=== PATIENT | male | born 1990 | race African-American/Black ===

== ENCOUNTER → 2021-11-07 14:51 | Outpatient (REF) | payer OTHER, SELFPAY | LOC: HO.SL 14:51 | PROVIDERS: PCP Internal Medicine; Visit Provider Internal Medicine | DX: G47.30 Sleep apnea, unspecified (principal) | CPT/HCPCS: 95806 ==

== ENCOUNTER 2022-08-08 05:51 | Emergency (ER) | payer OTHER, SELFPAY ==
--- NOTE | ~2022-08-08 | XR_ITS ---
EXAMINATION: XR WRIST, LEFT CLINICAL INFORMATION: Pain after work injury COMPARISON: None TECHNIQUE: Four views of the left wrist. FINDINGS: No fracture or dislocation. The carpal rows are well aligned. Joint spaces are maintained. Soft tissues are unremarkable. XR/XR wrist LT min 3V IMPRESSION: Normal left wrist.
[2022-08-08 06:31] VITALS: BMI 28.0
--- NOTE | 2022-08-08 07:35 | ED.EXTPRO ---
HPI - Extremity Problem General Chief complaint: Extremity Problem Stated complaint: broken? wrist Time Seen by Provider: 08/08/22 07:21 Source: patient Mode of arrival: ambulatory Limitations: no limitations History of Present Illness HPI Narrative: 32-year-old male who presents emergency department for evaluation of left wrist injury. Patient states that 3 days prior he was using a hammer accidentally struck his left wrist. Patient points to his left distal radial area when asked to localize his pain. He states that he has had a constant, sharp pain in his wrist which is worse if he bends his wrist. He has been wearing a wrist splint and states he has been able to continue to work while wearing the splint. Patient states that he fractured his left wrist sober years ago and the initial x-ray miss the fracture. He states that he was in [place] for 4-6 weeks secondary to the fracture. Complaint: extremity pain Onset (ago): day(s) (3) Pain Consistency: constant Location: left Severity scale (1-10): 2 Quality: sharp Radiation: none Relieving factors: immobilization Exacerbating factors: range of motion Associated symptoms: denies other symptoms Related Data Home Medications Medication Instructions Recorded Confirmed No Known Home Meds 10/22/20 10/22/20 Allergies Allergy/AdvReac Type Severity Reaction Status Date / Time No Known Allergies Allergy Verified 08/08/22 06:31 Review of Systems Review of Systems: Yes all other systems are reviewed and are negative [facility] Past Medical History [facility] Narrative: Social history: He denies tobacco use. He occasionally drinks alcohol. He denies drug use. Medical History Annual physical exam Myasthenia gravis Sleep apnea Family History Family History Mother Leukemia Father No problems noted. Social History Social History Alcohol intake: current Alcohol intake frequency: 0-2 drinks per day Advance Directives: Yes Advance Directives Information Provided: Yes Advance Directives on File: No Physical Exam Vital Signs: Vital Signs: BMI result Body Mass Index 28.0 Const: Other: Very pleasant and cooperative male patient, in no distress, answers all questions appropriately. Extrem: Other: There is no soft tissue swelling or ecchymosis noted over the patient's left wrist her forearm, he does have localized tenderness with palpation of the distal radius with no tenderness over the anatomic snuffbox. Patient has no tenderness with palpation over his elbow or hand. Course Course Course Narrative: 32-year-old male who presents emergency department for evaluation left wrist pain after accidentally hitting his left wrist with a hammer 3 days prior. Patient is wearing a wrist immobilizer and he states that this does relieve this pain. Examination did reveal tenderness palpation over the distal radius with no tenderness palpation over the anatomic snuffbox or over his wrist joints. Extremities neurovascular . X-rays of the patient's left wrist and forearm were obtained and there are no acute fractures noted on my review these x-rays or by the radiologist's interpretation. I did discuss this with the patient. He is advised to continue to wear his wrist splint for 1-2 weeks and he was advised to take Tylenol and ibuprofen for the pain. He was given verbal and printed instructions and discharged home. Discharge Plan Discharge Clinical Impression: Contusion of left wrist Patient Disposition: Home, Self-Care Instructions: Wrist Injury (ED) Additional Instructions: Your tender over the distal radius of your left forearm. The x-rays of your forearm and wrist do not reveal any broken bones on my review of these x-rays, the radiologist also did not see any broken bones which is reassuring Sometimes you can have a crack in the bone that cannot be seen on initial x-ray. If you continue to have pain in this area after 1-2 weeks then you can get a repeat x-ray to see if there is a healing line. The treatment however is often the same which is staying in the splint for 1-2 weeks. Continue to wear your splint for 1-2 weeks. Apply ice for 10 minutes 4 times a day to the area that hurts on your wrist pain Take ibuprofen 200 mg pills, 3 pills every 6 hours as needed for pain. Take Tylenol (acetaminophen) 500 mg pills, 2 pills every 4 to 6 hours as needed for pain. Follow-up with your doctor in 2 days. Please return to the emergency department if your symptoms get worse or if you develop any symptoms that are concerning to you. Prescriptions: No Action No Known Home Meds
== END 2022-08-08 07:48 | disposition home or self-care (01) ==
PROVIDERS: Emergency Provider Emergency Medicine Emergency Medical Services
DX: S60.212A Contusion of left wrist, initial encounter (principal); W22.8XXA Striking against or struck by other objects, initial encounter; Y93.89 Activity, other specified; Y92.019 Unspecified place in single-family (private) house as the place of occurrence of the external cause
CPT/HCPCS: 73110; 99282; 99283

== ENCOUNTER 2023-12-10 13:07 | Outpatient (REF) | payer OTHER, SELFPAY ==
[2023-12-10 16:13] LABS: MANUAL DIFF FLAG NO
[2023-12-10 16:22] LABS: Basophils Percent Auto 0.2 % (0-2); Hematocrit 40.8 % (42.0-52.0); Hemoglobin 13.3 g/dl (14.0-18.0); Imm Gran Abs Auto 0.01 X10*3/uL (0.00-0.03); Imm Gran Pct Auto 0.2 % (0.0-0.4); Lymphocytes Absolute Auto 1.5 X10*3/uL (1.2-4.9); Lymphocytes Percent Auto 36.1 % (20-40); Mean Corpuscular HGB Conc 32.6 g/dl (31.0-36.0); Mean Corpuscular Hemoglobin 27.4 pg (27.0-33.0); Mean Platelet Volume 10.4 fL (9.4-12.4); Monocytes Absolute Auto 0.5 X10*3/uL (0.1-1.2); Neutrophils Absolute Auto 2.1 x10*3/uL (2.0-8.3); Neutrophils Percent Auto 50.5 % (45-73); Platelet Count 201 X10*3/uL (160-400); Red Blood Count 4.86 X10*6/uL (4.60-5.80); Red Cell Distribution Width 13.3 % (11.0-16.0); White Blood Count 4.1 X10*3/uL (4.8-10.8)
[2023-12-10 16:49] LABS: Alanine Aminotransferase 29 U/L (0-40); Albumin Level 4.4 g/dL (3.5-5.0); Alkaline Phosphatase 46 U/L (39-117); Anion Gap 11 (12-20); Aspartate Amino Transferase 60 U/L (5-37); Bilirubin Total 2.3 mg/dL (0.0-1.0); Blood Urea Nitrogen 16 mg/dL (9-16); Calcium 9.4 mg/dL (8.4-10.2); Carbon Dioxide 28 mmol/L (22-29); Chloride 105 mmol/L (96-108); Cholesterol 168 mg/dL (<200); Estimated Glomerular Filt Rate > 60; Glucose Fasting 89 mg/dL (60-99); HDL Cholesterol 60 mg/dL (>40); LDL Cholesterol Calculated 101 mg/dL (<100); Potassium 4.1 mmol/L (3.3-5.1); Sodium 140 mmol/L (135-145); Total Protein 7.5 g/dL (6.5-8.0); Triglycerides 36 mg/dL (<150)
== END 2023-12-10 13:08 | disposition home or self-care (01) ==
LOC: HO.HMGCLDS 13:07
PROVIDERS: PCP Internal Medicine; Visit Provider Internal Medicine
DX: Z00.00 Encounter for general adult medical examination without abnormal findings (principal); Z13.220 Encounter for screening for lipoid disorders
CPT/HCPCS: 36415; 80053; 80061; 85025

== ENCOUNTER 2023-12-17 11:44 | Outpatient (AMB) | payer OTHER, SELFPAY ==
[2023-12-17 11:45] VITALS: BP 126/74; PULSE 71; O2SAT 98; BMI 29.2
--- NOTE | 2023-12-17 11:45 | A.OFFPC_ITS ---
Vital Signs 12/17/23 11:45 Height 6 ft 4 in Weight 240 lb BMI 29.2 BP 126/74 Blood Pressure Location Lt brachial Position Sitting Pulse 71 Pulse Source Pulse Oximeter Pulse Oximetry (%) 98 Oxygen Delivery Method Room Air Intake Visit Reasons: follow up sleep apnea Intake Note: Pt is here today for PE. Pt states that he had blood work done. Allergies No Known Allergies Allergy (Verified 12/17/23 11:49) Medication List - Last Reconciled 12/17/23 by Laverne Morales MD No Known Home Meds Tobacco use date assessed: 12/17/23 Dental Screening Dental Screen Date: 12/17/23 Did you have a dental visit in the last 12 months?: Yes Did you have a dental problem in the last 6 months where you did not have access to dental care?: No Was dental information given to patient?: Patient has dentist HPI HPI Comments History of Present Illness Details Pt presents for PE. [facility] Medical History (Updated 12/17/23 @ 12:37 by Laverne Morales MD) Sleep apnea Annual physical exam Family History Mother Leukemia Father No problems noted. Social History Housing: House Alcohol intake: current Alcohol intake frequency: 0-2 drinks per day Patient Tobacco Use Status: Never used Tobacco e-Cigarette/Vaping Use: Never Used Current occupational status: employed Cognitive needs: No Hearing needs: No Vision needs: No Questionnaire PHQ-9 Over the last 2 weeks, how often have you been bothered by any of the following problems? 1. Little interest or pleasure in doing things: not at all 2. Feeling down, depressed, or hopeless: not at all 3. Trouble falling or staying asleep, or sleeping too much: more than half the days 4. Feeling tired or having little energy: several days 5. Poor appetite or overeating: not at all 6. Feeling bad about yourself - or that you are a failure or have let yourself or your family down: not at all 7. Trouble concentrating on things, such as reading the newspaper or watching television: not at all 8. Moving or speaking so slowly that other people could have noticed. Or the opposite - being so fidgety or restless that you have been moving around a lot more than usual: not at all 9. Thoughts that you would be better off or of hurting yourself in some way: not at all Total score: 3 Depression Screening Interpretation: Negative Depression Screening Done: Yes 93424 - PHQ-9 Billing: Yes Source: Developed by Drs. Liban Tinajero, Kiley Ag, Bradford Ames and colleagues, with an educational abeba from [employer]. Thrive Questionnaire Date Thrive assessed: 12/17/23 I am a: Patient What is your living situation today?: I have a steady place to live Within the past 12 months, did the food you bought not last and you didn't have the money to get more?: I choose not to answer this question Within the past 12 months, did you worry whether your food would run out before you got money to buy more?: I choose not to answer this question Do you have trouble paying for medicines?: I choose not to answer this question Do you have trouble getting transportation to medical appointments?: I choose not to answer this question Do you have trouble paying your heating and electricity bill?: I choose not to answer this question Do you have trouble taking care of your child, family member or friend?: I choose not to answer this question Do you have trouble with day-to-day activities such as bathing, preparing meals, shopping, managing finances, etc.?: I choose not to answer this question Are you currently unemployed and looking for a job?: I choose not to answer this question Are you interested in more education?: I choose not to answer this question THRIVE Score: 0 AUDIT C Alcohol Use Questionnaire (AUDIT-C) 1. How often do you have a drink containing alcohol?: 2-3 times a week 2. How many drinks containing alcohol do you have on a typical day when you are drinking?: 1 or 2 3. How often do you have six or more drinks on one occasion?: Never Total Score: 3 JULIOCESAR-7 AMB Questionnaire JULIOCESAR-7 Date JULIOCESAR - 7 assessed: 12/17/23 Feeling nervous, anxious, or on edge: 0 = Not at all Not being able to stop or control worryin = Not at all Worrying too much about different things: 0 = Not at all Trouble relaxin = Not at all Being so restless that it is hard to sit still: 0 = Not at all Becoming easily annoyed or irritable: 0 = Not at all Feeling afraid as if something awful might happen: 0 = Not at all Total JULIOCESAR-7 score (0-4 normal; 5-9 mild; 10-14 moderate; 15-21 severe): 0 Source: Developed by Drs. Liban Tinajero, Kiley Ag, Bradford Ames and colleagues, with an educational abeba from [employer]. Review of Systems Const All systems reviewed & are unremarkable except as noted in HPI and below Reports no additional complaints Eyes Reports no additional complaints ENT Reports no additional complaints Card Reports no additional complaints Resp Reports no additional complaints GI Reports no additional complaints Reports no additional complaints Musc Reports no additional complaints Physical exam (Primary Care) Vital Signs: Last Vital Signs Pulse 71 12/17/23 11:45 BP 126/74 12/17/23 11:45 Pulse Ox 98 12/17/23 11:45 Oxygen Delivery Method Room Air 12/17/23 11:45 BMI result Body Mass Index 29.2 Tobacco/Smoking Status: Tobacco use Status Tobacco use date assessed 12/17/23 12/17/23 11:53 Patient Tobacco Use Status Never used Tobacco 12/17/23 11:53 e-Cigarette/Vaping Use Never Used 12/17/23 11:53 PHQ-9: PHQ-9 Score PHQ-9: Total score 3 12/17/23 12:45 Depression Screening Interpretation: Negative Thrive Assessment: Date of Thrive Assessment Date Thrive assessed 12/17/23 12/17/23 12:45 Const General: no acute distress HENMT Head: Yes normal to inspection Ears: hearing grossly normal bilaterally General nose exam: Normal external nose present Face and sinus: Yes normal facial exam Mouth: Normal oral and palatal mucosa present Throat: Yes posterior oropharynx normal Eyes General: appearance normal, both eyes and all related structures Neck Neck: Yes no lymphadenopathy and Yes supple Resp Effort & Inspection: normal respiratory effort Auscultation: clear to auscultation bilaterally Cardio Rhythm: regular rhythm Heart sounds: S1 normal heart sound present and S2 normal heart sound present GI Inspection: Yes normal to inspection Palpation (GI): Soft to palpation Percussion: Yes normal to percussion Auscultation: normal bowel sounds Assessment and Plan Assessment & Plan (1) Elevated LFTs: Code(s): R7.89 - Other specified abnormal findings of blood chemistry Plan: Obtain hepatitis screen and liver ultrasound, patient was advised to avoid alcohol [id number] NSAID's (2) Annual physical exam: Code(s): Z00.00 - Encounter for general adult medical examination without abnormal findings Plan: Well-balanced diet regular physical activity discussed with the patient (3) Sleep apnea: Comment: on C pap Code(s): G47.30 - Sleep apnea, unspecified Orders: Orders Hepatitis A,B,C Profile Today - Other specified abnormal findings of blood chemistry, Z00.00 - Encounter for general adult medical examination without abnormal findings HIV Ab/Ag Today . - Other specified abnormal findings of blood chemistry, Z00.00 - Encounter for general adult medical examination without abnormal fin dings Bilirubin Direct Today . - Other specified abnormal findings of blood chemistry Liver Panel Today . - Other specified abnormal findings of blood chemistry, Z00.00 - Encounter for general adult medical examination without abnormal findings US abdomen complete Today . - Other specified abnormal findings of blood chemistry, Z00.00 - Encounter for general adult medical examination without abnormal findings IRON PROFILE Today . - Other specified abnormal findings of blood chemistry, Z00.00 - Encounter for general adult medical examination without abnormal findings Vitamin B12 and Folate Today . - Other specified abnormal findings of blood chemistry, Z00.00 - Encounter for general adult medical examination without abnormal findings Complete Blood Count Auto Diff Today . - Other specified abnormal findings of blood chemistry, Z00.00 - Encounter for general adult medical examination without abnormal findings Hemoglobin Electrophoresis Today Z00.00 - Encounter for general adult medical examination without abnormal findings Ferritin Today . - Other specified abnormal findings of blood chemistry Coding Level of Care Code Est Pt Prev Care 18-39y([id number]) Diagnoses Elevated LFTs . Annual physical exam Z00.00 Sleep apnea G47.30
== END 2023-12-17 12:39 | disposition home or self-care (01) ==
PROVIDERS: PCP Internal Medicine; Visit Provider Internal Medicine
DX: R79.89 Other specified abnormal findings of blood chemistry (principal); Z00.00 Encounter for general adult medical examination without abnormal findings; G47.30 Sleep apnea, unspecified
CPT/HCPCS: 99395

== ENCOUNTER 2023-12-22 10:29 | Outpatient (REF) | payer OTHER, SELFPAY ==
--- NOTE | ~2023-12-22 | US_ITS ---
EXAMINATION: US ABDOMEN COMPLETE CLINICAL INFORMATION: Elevated LFTs.. COMPARISON: None available. TECHNIQUE: Real-time imaging of the abdominal viscera. FINDINGS: PANCREAS: Normal. The pancreatic duct measures 0.2 cm. ABDOMINAL AORTA: The proximal, mid, and distal segments are normal in caliber. INFERIOR VENA CAVA: Visualized portions are normal. LIVER: Normal. The liver is normal in size. The liver contour is normal. Parenchymal echogenicity is normal. No focal hepatic lesion. There is no intrahepatic biliary duct dilatation seen. GALLBLADDER: Normal. The gallbladder is physiologically distended without evidence of stones, sludge, polyps, wall thickening or pericholecystic fluid. COMMON BILE DUCT: Normal in caliber measuring 0.2 cm in diameter. RIGHT KIDNEY: Normal. No hydronephrosis. No renal calculi or focal parenchymal lesions. The kidney measures 12.6 cm in maximum dimension. LEFT KIDNEY: Normal. No hydronephrosis. No renal calculi or focal parenchymal lesions. The kidney measures 11.6 cm in maximum dimension. SPLEEN: Normal. The spleen measures 10.1 cm in maximum dimension. FREE FLUID: None. US/US abdomen complete IMPRESSION: Normal abdominal ultrasound.
[2023-12-22 13:32] LABS: MANUAL DIFF FLAG NO
[2023-12-22 13:43] LABS: Basophils Percent Auto 0.8 % (0-2); Eosinophils Absolute Auto 0.1 X10*3/uL (0.0-0.4); Eosinophils Percent Auto 2.2 % (0-4); Hematocrit 41.3 % (42.0-52.0); Hemoglobin 13.4 g/dl (14.0-18.0); Imm Gran Abs Auto 0.01 X10*3/uL (0.00-0.03); Imm Gran Pct Auto 0.3 % (0.0-0.4); Lymphocytes Absolute Auto 1.5 X10*3/uL (1.2-4.9); Lymphocytes Percent Auto 42.2 % (20-40); Mean Corpuscular HGB Conc 32.4 g/dl (31.0-36.0); Mean Corpuscular Hemoglobin 27.6 pg (27.0-33.0); Mean Corpuscular Volume 85.2 fL (80.0-98.0); Mean Platelet Volume 10.8 fL (9.4-12.4); Monocytes Absolute Auto 0.3 X10*3/uL (0.1-1.2); Monocytes Percent Auto 8.9 % (2-11); Neutrophils Absolute Auto 1.6 x10*3/uL (2.0-8.3); Neutrophils Percent Auto 45.6 % (45-73); Platelet Count 252 X10*3/uL (160-400); Red Blood Count 4.85 X10*6/uL (4.60-5.80); Red Cell Distribution Width 13.2 % (11.0-16.0); White Blood Count 3.6 X10*3/uL (4.8-10.8)
[2023-12-22 14:05] LABS: Alanine Aminotransferase 28 U/L (0-40); Albumin Level 4.2 g/dL (3.5-5.0); Alkaline Phosphatase 45 U/L (39-117); Aspartate Amino Transferase 35 U/L (5-37); Bilirubin Direct 0.3 mg/dL (0.0-0.5); Bilirubin Total 1.1 mg/dL (0.0-1.0); Iron 100 mcg/dL (45-160); Percent Iron Saturation 49 % (15-50); Total Iron Binding Capacity 204 mcg/dL (228-428); Total Protein 7.3 g/dL (6.5-8.0); Unsaturated Iron Binding 104 ug/dL
[2023-12-22 14:13] LABS: Ferritin 202 ng/mL (20-250)
[2023-12-22 14:22] LABS: Vitamin B12 714 pg/mL (200-900)
[2023-12-23 05:51] LABS: HBS Num1 28.64 mIU/mL (0-7.99); HBc Num1 0.08 S/CO (0.00-0.79); HBsAGNum1 0.29 S/CO (0.00-0.99); HIV AB/AG Nonreactive (Nonreactive); HIV Num 1 0.07 S/CO (0.00-0.99); Hepatitis A Antibody IgM 0.15 Index (0-0.79); Hepatitis B Core Antibody Nonreactive (Nonreactive); Hepatitis B Surface Antigen Negative (Negative); ~Hepatitis A Antibody IgM Nonreactive (Nonreactive); ~Hepatitis B Surface Antibody REACTIVE (Nonreactive); ~Hepatitis C Antibody Nonreactive (Nonreactive)
[2023-12-25 14:59] LABS: Hematocrit 39.5 % (38.5-50.0); Hemoglobin 13.2 g/dL (13.2-17.1); MCH 27.6 pg (27.0-33.0); MCV 82.6 fL (80.0-100.0); RBC 4.78 Million/uL (4.20-5.80); RDW 12.5 % (11.0-15.0)
== END 2023-12-22 10:30 | disposition home or self-care (01) ==
LOC: HO.HMGCX 10:29
PROVIDERS: PCP Internal Medicine; Visit Provider Internal Medicine
DX: Z00.00 Encounter for general adult medical examination without abnormal findings (principal); R79.89 Other specified abnormal findings of blood chemistry
CPT/HCPCS: 36415; 76700; 80076; 82607; 82728; 82746; 83020; 83540; 85014; 85018; 85025; 85041; 86704; 86706; 86709; 86803; 87340; 87389